=== PATIENT | male | born 1980 | race Hispanic/Latino ===

== ENCOUNTER 2021-04-28 02:22 | Observation (INO) | payer OTHER ==
[~2021-04-28] VITALS: Ht 175.3 cm; Wt 96.6 kg
[2021-04-28] MEDS ORDERED: 0.9%NACL 1000ML 1,000 ML IV ONE (03:00)
[2021-04-28 03:28] LABS: BASOPHILS % (AUTO) 0.4 % (0.0-5.0); EOSINOPHILS % (AUTO) 0.5 % (0.0-8.0); HEMATOCRIT 47.6 % (42-54); LYMPHOCYTES % (AUTO) 14.1 % (21.0-51.0); MEAN CORPUSCULAR HEMOGLOBIN 28.8 pg (27.0-33.0); MEAN CORPUSCULAR HGB CONC 32.4 g/dL (32.0-36.0); MEAN CORPUSCULAR VOLUME 89.1 fL (79-99); NEUTROPHILS % (AUTO) 79.4 % (40.0-77.0); PLATELET COUNT (AUTO) 329 K/uL (130-400); RED BLOOD CELL COUNT(AUTO) 5.34 MIL/uL (4.50-6.20); RED CELL DISTRIBUTION WIDTH 13.8 % (11.0-15.5); WHITE BLOOD COUNT (AUTO) 14.2 K/uL (4.8-10.8)
[2021-04-28 03:29] LABS: CHLORIDE 105 mmol/L (101-111); POTASSIUM 4.2 mmol/L (3.5-5.1); SODIUM SERUM 140 mmol/L (136-145)
[2021-04-28] MEDS ORDERED: ONDANSETRON 4MG INJ ONE (03:34)
[2021-04-28 03:43] LABS: ALANINE AMINOTRANSFERASE 45 U/L (12-78); ALBUMIN 3.6 g/dL (3.5-5.0); ALCOHOL, BLOOD 13 mg/dL (0-10); ASPARTATE AMINOTRANSFERASE 21 U/L (10-37); BILIRUBIN,TOTAL 0.4 mg/dL (0.2-1.0); CARBON DIOXIDE 25 mmol/L (21-32); CREATINE KINASE, TOTAL 77 U/L (21-232); CREATININE 0.9 mg/dL (0.5-1.5); GLOMERULAR FILTR. RATE CALC 98 mL/min (>60); GLUCOSE,RANDOM 121 mg/dL (70-105); SALICYLATE 2.9 mg/dL (2.8-20.0); TOTAL PROTEIN, SERUM 7.6 g/dL (6.0-8.3); UREA NITROGEN, BLOOD 18 mg/dL (7-18)
[2021-04-28 03:48] LABS: ACETAMINOPHEN < 1 mcg/mL (10-29)
[2021-04-28 07:21] LABS: APPEARANCE,URINE CLEAR (CLEAR); BILIRUBIN,URINE NEGATIVE (NEGATIVE); COLOR,URINE YELLOW (YELLOW); GLUCOSE, URINE (UA) NEGATIVE (NEGATIVE); KETONES,URINE NEGATIVE (NEGATIVE); LEUKOCYTE ESTERASE ,URINE NEGATIVE (NEGATIVE); NITRATE,URINE NEGATIVE (NEGATIVE); OCCULT BLOOD,URINE NEGATIVE (NEGATIVE); PH,URINE 6.5 (5.0-8.0); PROTEIN,URINE NEGATIVE (NEGATIVE); UROBILINOGEN,URINE 0.2 mg/dL (0.2-1.0)
[2021-04-28 07:29] LABS: AMPHET/METH SCREEN,URINE NEGATIVE (NEGATIVE); BARBITURATE SCREEN, URINE NEGATIVE (NEGATIVE); BENZODIAZEPINES SCREEN,URINE NEGATIVE (NEGATIVE); CANNABINOID SCREEN,URINE POSITIVE (NEGATIVE); COCAINE SCREEN,URINE POSITIVE (NEGATIVE); OPIATE SCREEN,URINE NEGATIVE (NEGATIVE); PHENCYCLIDINE SCREEN,URINE NEGATIVE (NEGATIVE)
[2021-04-28 08:21] LABS: INR 0.99 (0.85-1.15); PROTHROMBIN TIME 10.8 SEC (9.6-11.6)
[2021-04-28 08:22] LABS: PARTIAL THROMBOPLASTIN TIME 25.9 SEC (26.3-35.5)
[2021-04-28 08:33] LABS: THYROID STIMULATING HORMONE 0.38 uIU/mL (0.36-3.74)
[2021-04-28] MEDS ORDERED: FAMOTIDINE 20MG VIAL IV SCH (09:00)
[2021-04-28] MEDS ORDERED: HEPARIN 5,000 UNIT VIAL SQ SCH (09:00)
[2021-04-28] MEDS ORDERED: PHARMACY COMMUNICATION MISC PRN (09:30)
[2021-04-28] MEDS ORDERED: CHLORDIAZEPOXIDE HCL 25 MG CAP PO PRN (09:30)
[2021-04-28] MEDS ORDERED: LORAZEPAM 2 MG/ML 1 ML VIAL IVP PRN (09:30)
[2021-04-28] MEDS ORDERED: PROMETHAZINE HCL 25 MG TABLET PO PRN (09:30)
[2021-04-28] MEDS ORDERED: 0.9%NACL 1000ML 1,000 ML IV SCH (13:00)
[2021-04-28] MEDS ORDERED: THIAMINE HCL 100 MG/ML 2ML VIAL ONE (13:56)
[2021-04-28 15:23] VITALS: BP 110/69
[2021-04-29] MEDS ORDERED: THIAMINE HCL 100 MG/ML 2ML VIAL IM SCH (09:00)
[2021-04-29] MEDS ORDERED: MULTIVITAMIN TABLET PO SCH (09:00)
[2021-04-29] MEDS ORDERED: FOLIC ACID 1 MG TABLET PO SCH (09:00)
== END 2021-04-28 17:16 | disposition left against medical advice (07) ==
LOC: EDH 02:22 → EDHIP 08:02
PROVIDERS: ADMIT Hospitalist; ATTEND Hospitalist
DX: I63.9 Cerebral infarction, unspecified (principal); Z20.822 Contact with and (suspected) exposure to COVID-19; R55 Syncope and collapse; R56.9 Unspecified convulsions; R93.89 Abnormal findings on diagnostic imaging of other specified body structures; F10.129 Alcohol abuse with intoxication, unspecified; F12.90 Cannabis use, unspecified, uncomplicated; F14.10 Cocaine abuse, uncomplicated; R29.700 NIHSS score 0; G51.0 Bell's palsy; K92.0 Hematemesis; F19.10 Other psychoactive substance abuse, uncomplicated; F17.210 Nicotine dependence, cigarettes, uncomplicated; Z79.899 Other long term (current) drug therapy; Z98.890 Other specified postprocedural states
CPT/HCPCS: 36415; 70450; 70551; 71045; 80053; 80061; 80305; 81003; 82550; 83036; 84443; 85025; 85610; 85730; 87635; 92522; 92610; 93005; 96361; 96372; 96374; 97116; 97161; 99285; G0378 ×8; G0481; J2405; J3411; J7030

== ENCOUNTER 2022-03-04 19:20 | Emergency (ER) | payer OTHER ==
[~2022-03-04] VITALS: Ht 175.3 cm; Wt 83.5 kg
[2022-03-04] MEDS ORDERED: TETANUS/DIPHTHERIA TOXOID [ADULT] 0.5 ML VIAL IM ONE (20:26)
[2022-03-04] MEDS ORDERED: 0.9%NACL 1000ML 2,000 ML IV ONE (20:30)
[2022-03-04] MEDS ORDERED: DIPH,PERTUSS(ACELL),TET VAC/PF 0.5 ML VIAL IM ONE (20:30)
[2022-03-04] MEDS ORDERED: CEFAZOLIN SODIUM 2 GM VIAL IVP SCH (20:30)
[2022-03-04] MEDS ORDERED: MORPHINE 2 MG SYG IVP ONE (20:30)
[2022-03-04] MEDS ORDERED: ONDANSETRON 4MG INJ ONE (20:38)
[2022-03-04] MEDS ORDERED: LIDOCAINE HCL 1% 20 ML VIAL ONE (20:47)
[2022-03-04] MEDS ORDERED: IBUP-1493 PO (21:44)
[2022-03-04] MEDS ORDERED: CEPH500B PO (21:44)
[2022-03-04 22:13] LABS: BASOPHILS % (AUTO) 0.3 % (0.0-5.0); EOSINOPHILS % (AUTO) 0.7 % (0.0-8.0); HEMATOCRIT 44.2 % (42-54); LYMPHOCYTES % (AUTO) 17.2 % (21.0-51.0); MEAN CORPUSCULAR HEMOGLOBIN 29.3 pg (27.0-33.0); MEAN CORPUSCULAR HGB CONC 33.5 g/dL (32.0-36.0); MEAN CORPUSCULAR VOLUME 87.5 fL (79-99); MONOCYTES % (AUTO) 6.1 % (3.0-13.0); NEUTROPHILS % (AUTO) 75.3 % (40.0-77.0); PLATELET COUNT (AUTO) 346 K/uL (130-400); RED BLOOD CELL COUNT(AUTO) 5.05 MIL/uL (4.50-6.20); RED CELL DISTRIBUTION WIDTH 13.9 % (11.0-15.5); WHITE BLOOD COUNT (AUTO) 15.3 K/uL (4.8-10.8)
[2022-03-04 22:23] LABS: INR 0.93 (0.85-1.15)
[2022-03-04 22:25] LABS: PARTIAL THROMBOPLASTIN TIME 28.2 SEC (26.3-35.5)
[2022-03-04 22:26] LABS: CREATININE 0.8 mg/dL (0.5-1.5); POTASSIUM 3.4 mmol/L (3.5-5.1)
[2022-03-04 22:30] LABS: ALBUMIN 3.4 g/dL (3.5-5.0); TOTAL PROTEIN, SERUM 6.8 g/dL (6.0-8.3)
[2022-03-04] MEDS ORDERED: IOHEXOL 350 MG/ML 100ML INFUS..BTL IV ONE (22:57)
[2022-03-05 00:16] VITALS: BP 122/78
== END 2022-03-05 00:35 | disposition home or self-care (01) ==
LOC: EDH 19:20
DX: S51.821A Laceration with foreign body of right forearm, initial encounter (principal); Z79.1 Long term (current) use of non-steroidal anti-inflammatories (NSAID); Z79.2 Long term (current) use of antibiotics; W25.XXXA Contact with sharp glass, initial encounter; Y93.89 Activity, other specified; Y92.89 Other specified places as the place of occurrence of the external cause; Y99.8 Other external cause status
CPT/HCPCS: 99285; 12042; 96365; 73206; 96375; 80053; 85025; 85610; 85730; 36415; 90715; 73090 ×2; 90471; 90714; J7030; J2405; Q9967; J0690